=== PATIENT | female | born 1970 | race Caucasian/White ===

== ENCOUNTER 2016-06-03 11:56 | Emergency (ER) | payer SELFPAY ==
[~2016-06-03] VITALS: Ht 157.5 cm; Wt 77.1 kg
[2016-06-03 12:23] VITALS: BP 115/63
--- NOTE | 2016-06-03 12:33 | NUR ---
pt to bed 4
--- NOTE | 2016-06-03 12:45 | NUR ---
PATIENT PRESENTS TO ER WITH C/O RT SIDED BACK PAIN X 2 DAYS. PT AAO X 4, RR EVEN AND UNLABORED. ER MD MADE AWARE. WILL CONTINUE TO MONITOR.
[2016-06-03] MEDS ORDERED: NACL 0.9% 1,000 ML IV SCH (12:49)
[2016-06-03] MEDS ORDERED: ONDANSETRON 4 MG/2 ML VIAL IVP ONE (12:50)
[2016-06-03] MEDS ORDERED: cefTRIAXone 2,000 MG in DEXTROSE 5% 100 ML IV ONE (12:50)
[2016-06-03] MEDS ORDERED: KETOROLAC 30 MG/ML VIAL IVP ONE (12:50)
[2016-06-03] MEDS ORDERED: cefTRIAXone 2,000 MG VIAL ONE (13:26)
[2016-06-03 15:58] VITALS: BP 118/70
--- NOTE | 2016-06-03 16:00 | NUR ---
Patient discharged with v/s stable. Written and verbal after care instructions given and explained. Patient alert, oriented and verbalized understanding of instructions. Ambulatory with steady gait. All questions addressed prior to discharge. ID band removed. Patient advised to follow up with PMD. Rx of KEFLEX, ACET W. COD AND ZOFRAN given. Patient educated on indication of medication including possible reaction and side effects. Opportunity to ask questions provided and answered.
== END 2016-06-03 16:00 | disposition home or self-care (01) ==
LOC: MED 11:56
DX: N30.90 Cystitis, unspecified without hematuria (principal); N12 Tubulo-interstitial nephritis, not specified as acute or chronic; Z85.41 Personal history of malignant neoplasm of cervix uteri; Z90.49 Acquired absence of other specified parts of digestive tract
CPT/HCPCS: 36415; 74176; 80053; 81001; 81025; 82150; 83690; 85025; 87040; 87077; 87086; 87186; 96365; 96375; 99291; J0696; J1885; J2405; J7030; J7060

== ENCOUNTER 2016-07-06 19:53 | Emergency (ER) | payer MEDICAID ==
[~2016-07-06] VITALS: Ht 160 cm; Wt 77.1 kg
[2016-07-06 20:01] VITALS: BP 127/78
--- NOTE | 2016-07-06 20:33 | NUR ---
Patient ambulated to bed 08.
--- NOTE | 2016-07-06 20:42 | NUR ---
PATIENT PRESENTS TO ED WITH NON-PRODUCTIVE, MOIST COUGH [id number] . PT STATES THE COUGH IS NOW CAUSING SORENESS IN CHEST. PT REPORTS NAUSEA WHEN COUGHING WELL . DENIES V/D; SKIN IS PINK/WARM/DRY; AAOX4 WITH EVEN AND STEADY GAIT; LUNGS CLEAR BL; HR EVEN AND REGULAR; PT DENIES ANY FEVER, CP OR SOB AT THIS TIME; PATIENT STATES PAIN OF 8/10 AT THIS TIME; VSS; PATIENT POSITIONED FOR COMFORT; HOB ELEVATED; BEDRAILS UP X2; BED DOWN. ER MD MADE AWARE OF PT STATUS.
--- NOTE | 2016-07-06 20:56 | NUR ---
Dr. Cunningham evaluating patient at bedside.
[2016-07-06 21:06] VITALS: BP 127/78
--- NOTE | 2016-07-06 21:06 | NUR ---
Patient discharged with v/s stable. Written and verbal after care instructions given and explained. Patient alert, oriented and verbalized understanding of instructions. Ambulatory with steady gait. All questions addressed prior to discharge. ID band removed. Patient advised to follow up with PMD. Rx of PROMETHAZINE AND AUGMENTIB 875MG PO BID WITH MEALS given. Patient educated on indication of medication including possible reaction and side effects. Opportunity to ask questions provided and answered.
== END 2016-07-06 21:06 | disposition home or self-care (01) ==
LOC: MED 19:53
DX: J20.9 Acute bronchitis, unspecified (principal); R03.0 Elevated blood-pressure reading, without diagnosis of hypertension; Z85.41 Personal history of malignant neoplasm of cervix uteri

== ENCOUNTER 2016-07-16 15:41 | Emergency (ER) | payer MEDICAID ==
[~2016-07-16] VITALS: Ht 157.5 cm; Wt 77.1 kg
[2016-07-16 15:55] VITALS: BP 127/75
[2016-07-16] MEDS ORDERED: KETOROLAC 30 MG/ML VIAL IM ONE (16:10)
--- NOTE | 2016-07-16 16:14 | NUR ---
46/F TO ED WITH C/O NECK AND LEFT SIDED JAW PAIN X1 DAY S/P TC. -AIRBAGS, +SEATBELT, NO LOC. PAIN 10/20. LUNGS CLEAR BILAT. HR EVEN AND REGULAR. AAOX4. VSS. NO SIGNS OF DISTRESS.
[2016-07-16 17:05] VITALS: BP 127/75
--- NOTE | 2016-07-16 17:06 | NUR ---
Patient discharged with v/s stable. Written and verbal after care instructions given and explained. Patient alert, oriented and verbalized understanding of instructions. Ambulatory with steady gait. All questions addressed prior to discharge. ID band removed. Patient advised to follow up with PMD. Rx of IBUPROFEN AND NORCO given. Patient educated on indication of medication including possible reaction and side effects. Opportunity to ask questions provided and answered.
== END 2016-07-16 17:06 | disposition home or self-care (01) ==
LOC: MED 15:41
DX: S16.1XXA Strain of muscle, fascia and tendon at neck level, initial encounter (principal); Z85.41 Personal history of malignant neoplasm of cervix uteri; V49.59XA Passenger injured in collision with other motor vehicles in traffic accident, initial encounter; Y93.89 Activity, other specified; Y92.411 Interstate highway as the place of occurrence of the external cause; Y99.8 Other external cause status
CPT/HCPCS: 96372; 99283; J1885

== ENCOUNTER 2016-09-05 08:18 | Emergency (ER) | payer MEDICAID ==
[~2016-09-05] VITALS: Ht 157.5 cm; Wt 79.4 kg
[2016-09-05 08:39] VITALS: BP 118/78
--- NOTE | 2016-09-05 08:43 | NUR ---
Patient ambulated to bed 04.
[2016-09-05] MEDS ORDERED: ONDANSETRON 4 MG ODT PO ONE (08:45)
--- NOTE | 2016-09-05 08:52 | NUR ---
PT CAME TO ER DUE TO VOMITING STARTING LAST NIGHT WITH FEVER;PT STATES SHE HAS A COUGH,RUNNY NOSE;SORETHROAT AND A THROBBING HEADACHE W/PAIN SCALE OF 9/10;PT TOOK TYLENOL BUT DID NOT HELPED PT;DENIES CP/SOB AT THIS TIME;STEADY GAIT;UNLABORED BREATHING W/SYMMETRICAL CHEST EXPANSION;O2 SAT OF 97%;AAOX4;HOB ELEVATED;NEEDS ATTENDED;SAFETY MEASURES DONE;ALL MONITORS IN PLACED;POSITIONED FOR COMFORT.
--- NOTE | 2016-09-05 09:25 | NUR ---
DR ONOFRE AT BEDSIDE.
--- NOTE | 2016-09-05 09:26 | NUR ---
PT TOLERATED PO;NO VOMITTING NOTED.
[2016-09-05] MEDS ORDERED: IBUPROFEN 600 MG TAB PO ONE (09:30)
[2016-09-05] MEDS ORDERED: ACETAMIN/CODEINE 120/12MG-5ML 5 ML UDC PO ONE (09:30)
--- NOTE | 2016-09-05 09:30 | NUR ---
INFLUENZA A AND B SWAB DONE;
--- NOTE | 2016-09-05 10:12 | NUR ---
PT SLLEPING;NO ACUTE DSITRESS NOTED AT THIS TIME;WILL CONTINUE TO MONITOR PT.
--- NOTE | 2016-09-05 10:35 | NUR ---
Patient discharged with v/s stable. Written and verbal after care instructions given and explained. Patient alert, oriented and verbalized understanding of instructions. Ambulatory with steady gait. All questions addressed prior to discharge. ID band removed. Patient advised to follow up with PMD. Rx of MEDROL DOSEPACK given. Patient educated on indication of medication including possible reaction and side effects. Opportunity to ask questions provided and answered.
[2016-09-05 10:36] VITALS: BP 110/73
== END 2016-09-05 10:35 | disposition home or self-care (01) ==
LOC: MED 08:18
DX: J02.8 Acute pharyngitis due to other specified organisms (principal); B97.89 Other viral agents as the cause of diseases classified elsewhere; Z85.41 Personal history of malignant neoplasm of cervix uteri; Z90.710 Acquired absence of both cervix and uterus; Z98.890 Other specified postprocedural states
CPT/HCPCS: 36415; 87804; 99284; S0119

== ENCOUNTER 2017-11-25 09:30 | Emergency (ER) | payer MEDICAID, OTHER ==
[~2017-11-25] VITALS: Ht 160 cm; Wt 77.3 kg
[2017-11-25 09:36] VITALS: BP 118/76
--- NOTE | 2017-11-25 09:41 | NUR ---
Patient ambulated to bed 11. RN evaluating patient at bedside.
--- NOTE | 2017-11-25 09:41 | NUR ---
PT. CAME INTO THE ED DUE TO R RIB PAIN S/P FALL LAST NIGHT. 10/20 SHARP RADIAITNG PAIN TO R BACK. PT. DENIES HITTING HER HEAD UPON FALL. PT STATES " I FELL OUT OF THE DINING ROOM CHAIR LAST NIGHT AND IT HAS BEEN HURTING HERE ON MY R SIDE". PT. DENIES SOB, LS: CLEAR. PT. HAS BRUISING NOTED TO HER R RIB CAGE AREA. ER NOTIFIED. WILL CONTINUE TO [facility].
--- NOTE | 2017-11-25 09:42 | NUR ---
REPORT GIVEN TO RONN HURST
[2017-11-25] MEDS ORDERED: IBUPROFEN 600 MG TAB PO ONE (10:00)
[2017-11-25] MEDS ORDERED: HYDROcodone/APAP 5/325 MG 1 TAB TAB PO ONE (10:00)
--- NOTE | 2017-11-25 10:10 | NUR ---
PT. TAKEN TO XRAY VIA WHEELCHAIR BY [facility]o.
[2017-11-25 11:03] VITALS: BP 120/76
== END 2017-11-25 11:03 | disposition home or self-care (01) ==
LOC: MED 09:30
DX: S20.211A Contusion of right front wall of thorax, initial encounter (principal); Z85.41 Personal history of malignant neoplasm of cervix uteri; W07.XXXA Fall from chair, initial encounter; Y93.89 Activity, other specified; Y92.89 Other specified places as the place of occurrence of the external cause; Y99.8 Other external cause status
CPT/HCPCS: 71046; 99284

== ENCOUNTER 2018-03-17 00:29 | Emergency (ER) | payer OTHER ==
[~2018-03-17] VITALS: Ht 157.5 cm; Wt 81.6 kg
[2018-03-17 00:44] VITALS: BP 120/69
[2018-03-17] MEDS ORDERED: cefTRIAXone 1,000 MG VIAL ONE ×2 (01:31→02:13)
[2018-03-17 01:41] LABS: APPEARANCE,URINE CLOUDY (CLEAR); BILIRUBIN,URINE NEGATIVE (NEGATIVE); BLOOD, URINE 3+ (NEGATIVE); COLOR,URINE AMBER (YELLOW); NITRITE, URINE POSITIVE (NEGATIVE); UGLUCOSE NEGATIVE (NEGATIVE)
[2018-03-17 01:42] LABS: LEUKOCYTE ESTERASE ,URINE 1+ (NEGATIVE)
[2018-03-17] MEDS ORDERED: LIDOCAINE 1% 50 ML ONE (01:54)
[2018-03-17 02:02] LABS: RBC,URINE 80-100 /HPF (0-5); WBC,URINE 60-80 /HPF (0-5)
[2018-03-17 02:03] LABS: YEAST,URINE Many /HPF (None Seen)
[2018-03-17] MEDS: KETOROLAC 60 MG/2 ML VIAL IM ONE (02:03)
[2018-03-17] MEDS: cefTRIAXone 1,000 MG in LIDOCAINE MPF 1% - 5 mL VIAL 2.1 ML IM ONE (02:08)
[2018-03-17 02:35] VITALS: BP 118/64
== END 2018-03-17 02:35 | disposition home or self-care (01) ==
LOC: MED 00:29
DX: M54.41 Lumbago with sciatica, right side (principal); N39.0 Urinary tract infection, site not specified; Z85.41 Personal history of malignant neoplasm of cervix uteri; Z90.710 Acquired absence of both cervix and uterus
CPT/HCPCS: 81001; 81025; 87086; 87186; 96372; 99284; J0696; J1885; J2001

== ENCOUNTER 2018-03-17 16:42 | Emergency (ER) | payer OTHER ==
[~2018-03-17] VITALS: Ht 160 cm; Wt 81.6 kg
[2018-03-17 17:09] VITALS: BP 134/79
--- NOTE | 2018-03-17 17:13 | NUR ---
PT AMBULATED TO LOBBY IN STABLE CONDITION
--- NOTE | 2018-03-17 18:15 | NUR ---
PT TO CHAIR E AT THIS TIME
--- NOTE | 2018-03-17 18:17 | NUR ---
48 Y/O F W/C/O "I WANT A WORK NOTE, I FORGOT TO ASK FOR ONE, AND I WANT ANOTHER PT SHOT." PT WAS JUST SEEN HERE FOR UTI AND GIVEN TRAMADOL, CEPHALEXIN, METHOCARBANOL, AND IBUPROPHEN. PT DENIES N/V/D; SKIN IS PINK/WARM/DRY; AAOX4, PERRL, WITH EVEN AND STEADY GAIT; LUNGS CLEAR BL, BREATHING UNLABORED; HR EVEN AND REGULAR, BL PERIPHERAL PULSES PRESENT; BS ACTIVE X4, NO TENDERNESS TO PALPATION, NO HEPATOSPLENOMEGALLY PALPATED, RESONANT TO PERCUSSION; PT DENIES ANY FEVER, CP, SOB, OR COUGH AT THIS TIME; PT STATES 8/10 PAIN AT THIS TIME; VSS; PATIENT POSITIONED FOR COMFORT; HOB ELEVATED; BEDRAILS UP X2; BED DOWN.
[2018-03-17] MEDS ORDERED: KETOROLAC 60 MG/2 ML VIAL IM ONE (19:30)
[2018-03-17 20:16] VITALS: BP 129/75
--- NOTE | 2018-03-17 20:17 | NUR ---
Patient discharged with v/s stable. Written and verbal after care instructions given and explained. Patient verbalized understanding. Ambulatory with steady gait. All questions addressed prior to discharge. Advised to follow up with PMD.
== END 2018-03-17 20:17 | disposition home or self-care (01) ==
LOC: MED 16:42
DX: M54.40 Lumbago with sciatica, unspecified side (principal); Z85.41 Personal history of malignant neoplasm of cervix uteri
CPT/HCPCS: 96372; 99283; J1885

== ENCOUNTER 2019-01-30 09:58 | Emergency (ER) | payer OTHER ==
[~2019-01-30] VITALS: Ht 157.5 cm; Wt 68.0 kg
[2019-01-30 10:04] VITALS: BP 115/71
--- NOTE | 2019-01-30 10:04 | NUR ---
PT TAKEN TO BED 6.
--- NOTE | 2019-01-30 10:34 | NUR ---
PT BIB FAMILY WITH C/O CP X 3 DAYS. PIAN AT THE UPPER RT CHEST, FEELS LIKE PRESSURE OVER THE CHEST, 11/19. HAS CONSTANT CP . DENIES SOB. DENIES ANY N,V,D, FEVER OR CHILLS. BREATHING NON-LABORED AND EVEN . NO DISTRESS NOTED. TOOK MOTRIN AT HOME FOR PAIN NO RELIEF. PT SEEN BY ER MD. WILL CONTINUE TO MONITOR PT.
[2019-01-30 10:43] LABS: CREATININE 0.7 mg/dL (0.6-1.3)
[2019-01-30 10:44] LABS: BASOPHILS % (AUTO) 0.4 % (0.0-2.0); EOSINOPHILS # (AUTO) 0.2 K/uL (0-0.4); EOSINOPHILS % (AUTO) 4.9 % (0.0-4.0); HEMATOCRIT 40.2 % (36-48); HEMOGLOBIN 13.1 g/dL (12.0-16.0); LYMPHOCYTES # (AUTO) 1.4 K/uL (2.5-16.5); LYMPHOCYTES % (AUTO) 28.7 % (20.5-51.1); MEAN CORPUSCULAR HEMOGLOBIN 26 pg (27-31); MEAN CORPUSCULAR HGB CONC 33 g/dL (33-37); MEAN CORPUSCULAR VOLUME 80.2 fL (80-94); MONOCYTES # (AUTO) 0.3 K/uL (0.8-1.0); MONOCYTES % (AUTO) 6.8 % (1.7-9.3); NEUTROPHILS # (AUTO) 2.8 K/uL (1.8-7.7); NEUTROPHILS % (AUTO) 59.2 % (42.2-75.2); PLATELET COUNT (AUTO) 243 K/uL (140-450); RED BLOOD CELL COUNT(AUTO) 5.02 MIL/uL (4.20-5.40); RED CELL DISTRIBUTION WIDTH 13.8 % (11.6-13.7); WHITE BLOOD COUNT (AUTO) 4.8 K/uL (4.8-10.8)
[2019-01-30] MEDS ORDERED: KETOROLAC 30 MG/ML VIAL ONE (10:49)
[2019-01-30] MEDS ORDERED: KETOROLAC 30 MG/ML VIAL IM ONE ×2 (10:50→11:30)
--- NOTE | 2019-01-30 11:56 | NUR ---
Patient discharged with v/s stable. Written and verbal after care instructions given and explained. Patient alert, oriented and verbalized understanding of instructions. Ambulatory with steady gait. All questions addressed prior to discharge. ID band removed. Patient advised to follow up with PMD. Rx of MOTRIN, TYLENOL given. Patient educated on indication of medication including possible reaction and side effects. Opportunity to ask questions provided and answered.
[2019-01-30 11:57] VITALS: BP 109/64
== END 2019-01-30 11:56 | disposition home or self-care (01) ==
LOC: MED 09:58
DX: R07.89 Other chest pain (principal); Z85.41 Personal history of malignant neoplasm of cervix uteri; Z90.49 Acquired absence of other specified parts of digestive tract; Z98.890 Other specified postprocedural states; Z90.710 Acquired absence of both cervix and uterus
CPT/HCPCS: 36415; 71045; 80048; 81002; 81025; 84484; 85025; 96372; 99284; J1885; Q0092

== ENCOUNTER 2019-05-03 06:13 | Emergency (ER) | payer OTHER ==
[~2019-05-03] VITALS: Ht 157.5 cm; Wt 72.6 kg
[2019-05-03 06:16] VITALS: BP 114/77
--- NOTE | 2019-05-03 06:17 | NUR ---
PT AMBULATED TO ER BED 09
--- NOTE | 2019-05-03 06:20 | NUR ---
49 Y/O FEMALE C/O FEVER WITH N/V/D X2 DAYS. +DUVALL AND BODY ACHE. SUBJECTIVE FEVER AT HOME. ATTEMPTED TO SELF MEDICATE WITH MOTRIN BUT VOMITTED IT UP. PATIENT STATES THAT SHE HAS VOMITED MULTIPLE TIMES SINCE COMING TO THE HOSPITAL "I CAN'T SEEM TO HOLD ANYTHING DOWN". . PAIN IS A 10/10 ACHING GENERALIZED PAIN. A/OX4 AND FOLLOWS COMMANDS; BREATHING UNLABORED AND SYMMETRICAL. 98% ON RA. TEMPERATURE AT 100.6 AT THIS TIME. BOWEL SOUNDS HYPERACTIVE ON ALL FOUR QUADRANTS. ERMD MADE AWARE OF STATUS. SIDE RAILSX1. NO MEDHX NKDA RX:DENIES SURGICAL HISTORY: CERVICAL (2004); GALL BLADDER REMOVAL; ; HYSTERECTOMY
[2019-05-03] MEDS ORDERED: NACL 0.9% 1,000 ML IV ONE ×2 (06:35→10:15)
[2019-05-03] MEDS ORDERED: ONDANSETRON 4 MG/2 ML VIAL IVP ONE (06:35)
[2019-05-03] MEDS ORDERED: LEVOFLOXACIN 500 MG/D5W PREMIX 100 ML IV ONE (06:40)
[2019-05-03 07:21] LABS: HEMATOCRIT 35.4 % (36-48); HEMOGLOBIN 11.4 g/dL (12.0-16.0); MEAN CORPUSCULAR HEMOGLOBIN 26 pg (27-31); MEAN CORPUSCULAR HGB CONC 32 g/dL (33-37); MEAN CORPUSCULAR VOLUME 79.4 fL (80-94); PLATELET COUNT (AUTO) 151 K/uL (140-450); RED BLOOD CELL COUNT(AUTO) 4.46 MIL/uL (4.20-5.40); RED CELL DISTRIBUTION WIDTH 13.8 % (11.6-13.7); WHITE BLOOD COUNT (AUTO) 11.1 K/uL (4.8-10.8)
--- NOTE | 2019-05-03 07:22 | NUR ---
PT AMBULATED TO RESTROOM
--- NOTE | 2019-05-03 07:37 | NUR ---
Dr. Velasquez is evaluating the patient at bedside.
[2019-05-03 07:43] LABS: BASOPHILS % (MANUAL) 0 % (0-2); EOSINOPHILS % (MANUAL) 0 % (0-4); LYMPHOCYTES % (MANUAL) 6 % (20-46); MONOCYTES % (MANUAL) 4 % (5-12)
[2019-05-03 07:45] LABS: ANION GAP 15.2 (8-16); CREATININE 1.3 mg/dL (0.6-1.3); POTASSIUM 3.2 mmol/L (3.5-5.1)
[2019-05-03 07:50] LABS: ALBUMIN 3.2 g/dL (3.4-5.0); TOTAL BILIRUBIN 0.5 mg/dL (0.0-1.0)
[2019-05-03 08:54] LABS: APPEARANCE,URINE CLOUDY (CLEAR); BILIRUBIN,URINE 1+ (NEGATIVE); BLOOD, URINE 3+ (NEGATIVE); COLOR,URINE YELLOW (YELLOW); LEUKOCYTE ESTERASE ,URINE 2+ (NEGATIVE); NITRITE, URINE NEGATIVE (NEGATIVE); UGLUCOSE TRACE (NEGATIVE)
--- NOTE | 2019-05-03 09:02 | NUR ---
PT RESTING IN BED; FAMILY AT BEDSIDE
[2019-05-03 09:05] LABS: WBC,URINE 20-60 /HPF (0-5)
[2019-05-03 09:06] LABS: RBC,URINE 50-80 /HPF (0-5); URINE AMORPHOUS URATE 1+ /HPF (None Seen)
[2019-05-03 09:08] LABS: COARSE GRANULAR CASTS,URINE 0-10 /LPF (None Seen)
--- NOTE | 2019-05-03 09:58 | NUR ---
PT RESTING IN BED, SIDE RAIL X1, FAMILY AT BEDSIDE
--- NOTE | 2019-05-03 10:07 | NUR ---
BP NOTIFIED TO DR FULTON ; PT ASYMPTOMATIC
[2019-05-03] MEDS ORDERED: POTASSIUM CHLORIDE 10 MEQ TABER PO ONE (10:30)
[2019-05-03 10:57] VITALS: BP 102/64
--- NOTE | 2019-05-03 10:57 | NUR ---
Patient discharged with v/s stable. Written and verbal after care instructions given and explained. Patient alert, oriented and verbalized understanding of instructions. Ambulatory with steady gait. All questions addressed prior to discharge. ID band removed. Patient advised to follow up with PMD. Rx of IMODIUM, PHENERGAN, FLAGYL given. Patient educated on indication of medication including possible reaction and side effects. Opportunity to ask questions provided and answered.
--- NOTE | 2019-05-14 16:51 | NUR ---
Late entry. Confirmed with RN that 0.9 NS IV completed at 0740. Another 0.9 NS IV completed at 1055. Levaquin IVPB completed at 0800.
== END 2019-05-03 10:57 | disposition home or self-care (01) ==
LOC: MED 06:13
DX: A09 Infectious gastroenteritis and colitis, unspecified (principal); E87.6 Hypokalemia; E86.0 Dehydration; Z85.41 Personal history of malignant neoplasm of cervix uteri
CPT/HCPCS: 36415; 80053; 81001; 81025; 85025; 87040; 87086; 87804; 96361; 96365; 96375; 99283; J1956; J2405; J7030

== ENCOUNTER 2023-07-05 11:16 | Emergency (ER) | payer OTHER ==
[~2023-07-05] VITALS: Ht 165.1 cm; Wt 72.6 kg
[2023-07-05 11:20] VITALS: BP 134/78; PULSE 94; RESP 16; TEMP 98.1; O2SAT 97
[2023-07-05] MEDS: MORPHINE SULFATE 4 MG/ML SYR IM ONE (13:00)
[2023-07-05] MEDS ORDERED: CEPH-588 PO (13:02)
[2023-07-05] MEDS ORDERED: ACET-8905 PO (13:02)
[2023-07-05 13:25] VITALS: BP 127/78; PULSE 88; RESP 16; TEMP 98.1; O2SAT 97
== END 2023-07-05 13:27 | disposition home or self-care (01) ==
LOC: MED 11:16
DX: N12 Tubulo-interstitial nephritis, not specified as acute or chronic (principal); Z90.49 Acquired absence of other specified parts of digestive tract; Z90.710 Acquired absence of both cervix and uterus; Z98.890 Other specified postprocedural states
CPT/HCPCS: 81002; 81025; 87086; 96372; 99283; J2270